=== PATIENT | male | born 1985 ===

== ENCOUNTER 2018-10-24 17:38 | Emergency (ER) | payer OTHER ==
[2018-10-24 17:38] VITALS: BMI 26.4
[2018-10-24 18:43] LABS: BASO % 0.8 % (0.0-2.0); EOS # 0.1 K/uL (0.0-0.7); HEMOGLOBIN 9.6 g/dL (12.0-18.0); LYMPH # 1.5 K/uL (1.0-4.3); LYMPH % 29.4 % (20.0-40.0); MEAN CELL VOLUME 72.3 fL (80.0-94.0); MEAN CORPUSCULAR HGB CONC 30.5 g/dL (33.0-37.0); MONO # 0.8 K/uL (0.0-0.8); MONO % 15.4 % (0.0-10.0); NEUT # 2.8 K/uL (1.8-7.0); NEUT % 52.4 % (50.0-75.0); NRBC % 0.1 % (0.0-2.0); RBC 4.37 Mil/uL (4.40-5.90); RED CELL DISTRIBUTION WIDTH 24.4 % (11.5-14.5); WHITE BLOOD COUNT 5.3 K/uL (4.8-10.8)
[2018-10-24 19:02] LABS: ALB/GLOB RATIO 1.2 (1.0-2.1); ALBUMIN 4.3 g/dL (3.5-5.0); ALT/SGPT 225 U/L (21-72); AST/SGOT 272 U/L (17-59); BLOOD UREA NITROGEN 9 mg/dL (9-20); CALCIUM 8.5 mg/dl (8.6-10.4); GFR NON-AFRICAN AMERICAN > 60; LIPASE 529 U/L (23-300)
--- NOTE | 2018-10-24 19:07 | C.PDOC ---
History Of Present Illness Lethargy with h/o intoxication Offers no complaints Excessively sleepy. History unreliable due to intoxication. Time Seen by Provider: 10/24/18 17:53 Chief Complaint (Nursing): Substance Abuse History Per: EMS History/Exam Limitations: intoxication Onset/Duration Of Symptoms: Unknown Past Medical History Reviewed: Historical Data, Nursing Documentation, Vital Signs Vital Signs: Last Vital Signs Temp 98.3 F 10/24/18 17:59 Pulse 113 H 10/24/18 17:59 Resp 16 10/24/18 17:59 BP 113/73 10/24/18 17:59 Pulse Ox 97 10/24/18 17:59 - Medical History PMH: Diabetes, Fractures, HTN, Schizophrenia Denies: Anxiety, Bipolar Disorder, Depression, Hepatitis, HIV, Personality Disorder, Chronic Kidney Disease, Seizures, Sexually Transmitted Disease Surgical History: Endoscopy - [facility] Procedures INTRODUCTION OF SERUM/TOX/VACCINE INTO MUSCLE, PERC APPROACH (01/08/18) TRANSFUSE NONAUT RED BLOOD CELLS IN PERIPH VEIN, PERC (06/10/18) Family History: States: Unknown Family Hx - Social History Hx Alcohol Use: Yes Hx Substance Use: No - Immunization History Hx Tetanus Toxoid Vaccination: No Hx Influenza Vaccination: No Hx Pneumococcal Vaccination: No Review Of Systems Review Of Systems: ROS cannot be obtained secondary to pt's inabilty to answer questions. Physical Exam - Physical Exam Appears: Toxic, Unkempt Skin: Warm, Dry Head: Atraumatic, Normacephalic Oral Mucosa: Moist Lips: Normal Appearing Neck: Normal ROM Lymphatic: No Adenopathy Chest: Symmetrical Cardiovascular: Rhythm Regular Respiratory: Normal Breath Sounds, No Accessory Muscle Use Gastrointestinal/Abdominal: Soft, No Tenderness Back: Normal Inspection Extremity: Normal ROM, No Deformity Neurological/Psych: Slow To Respond With Command, Other (Slurred speech, sleepy) ED Course And Treatment - Laboratory Results Result Diagrams: 10/24/18 18:39 10/24/18 18:39 O2 Sat by Pulse Oximetry: 97 (RA) Pulse Ox Interpretation: Normal Progress Note: Reviewed previous charts. Pt just discharged from [facility] after admission for GI bleed and alcohol intoxication. Had blood transfusion. Labs today demonstrate stable hgb and elevated BAL Medical Decision Making Medical Decision Making: Endorsed to Dr Vazquez pending sobriety Disposition - Disposition Referrals: Alcoholics Anonymous [Outside] [facility] [Outside] Disposition Time: 00:00 Condition: STABLE Instructions: Alcohol Abuse and Alcoholism (DC) - Clinical Impression Clinical Impression: Alcohol abuse with intoxication
[2018-10-24 22:41] VITALS: RESP 16
[2018-10-25 06:12] VITALS: BP 106/68; PULSE 69; TEMP 98
[2018-10-30 16:17] VITALS: O2SAT 97
== END 2018-10-25 06:08 | disposition home or self-care (01) ==
LOC: C.ER 17:38
DX: F10.129 Alcohol abuse with intoxication, unspecified (principal); Y90.8 Blood alcohol level of 240 mg/100 ml or more; I10 Essential (primary) hypertension; E11.9 Type 2 diabetes mellitus without complications